=== PATIENT | female | born 1955 | race African-American/Black ===

== ENCOUNTER 2018-11-28 18:26 | Inpatient (IN) | payer BC ==
--- OUTSIDE RECORDS SUMMARY | 2018-11-28 18:28 | XMS REPORT ---
:1955 Author Organization eClinicalWorks Care Team Providers Name Role Phone Kaylynn Dunn Provider Role Unavailable Allergies, Adverse Reactions, Alerts Substance Reaction Event Type N.K.D.A. Info Not Available Non Drug Allergy Problems Problem Type Condition Code Onset Dates Condition Status Assessment Polyp of colon, unspecified part of K63.5 Active colon, unspecified type Assessment Menopause present Z78.0 Active Assessment Hypercholesteremia E78.00 Active Assessment Breast mass, right N63.10 Active Problem Polyp of colon, unspecified part of K63.5 Active colon, unspecified type Problem Menopause present Z78.0 Active Problem Hypercholesteremia E78.00 Active Assessment Encounter for annual routine Z01.419 Active gynecological examination Assessment Encounter for screening mammogram Z12.31 Active for malignant neoplasm of breast Problem Breast mass, right N63.10 Active Medications Medication Code Code Instructions Start End Status Dosage System Date Date Simvastatin [facility] 45074298447 20 MG Orally Active 1 tablet Once a day in the evening Osteo Bi-Flex [facility] 09085202504 250-200 MG Active 1 tablet Regular Orally Once a with a Strength day meal Ecotrin [facility] 10882793703 325 MG Orally Active 1 tablet Once a day Results Name Result Date Reference Range Unit Abnormality Flag URINALYSIS AUTO W/O SCOPE (38629) ----NIT neg 20171021 ----URO 0.2 20171021 ----PROTEIN neg 20171021 ----pH 6.0 20171021 ----BLO trace 20171021 ----GLUCOSE neg 20171021 ----SOHAM neg 20171021 ----BILIRUBIN neg 20171021 ----KETONES neg 20171021 ----SPECIFIC GRAVITY 1.025 20171021 Summary Purpose eClinicalWorks Submission
--- OUTSIDE RECORDS SUMMARY | 2018-11-28 18:28 | XMS REPORT ---
:1955 Author Organization eClinicalWorks Care Team Providers Name Role Phone Yobany Jackson Provider Role Unavailable Allergies, Adverse Reactions, Alerts Substance Reaction Event Type N.K.D.A. Info Not Available Non Drug Allergy Problems Problem Type Condition Code Onset Dates Condition Status Assessment Menopause present Z78.0 Active Problem Polyp of colon, unspecified part of K63.5 Active colon, unspecified type Problem Menopause present Z78.0 Active Problem Encounter for gynecological Z01.419 Active examination without abnormal finding Assessment Encounter for gynecological Z01.419 Active examination without abnormal finding Problem Breast mass, right N63.10 Active Problem Hypercholesteremia E78.00 Active Medications Medication Code Code Instructions Start End Status Dosage System Date Date Simvastatin [facility] 16534670656 20 MG Orally Active 1 tablet Once a day in the evening Ecotrin [facility] 91685067588 325 MG Orally Active 1 tablet Once a day Osteo Bi-Flex [facility] 70987961758 250-200 MG Active 1 tablet Regular Orally Once a with a day meal Results No Known Results Summary Purpose eClinicalWorks Submission
[2018-11-28] MEDS ORDERED: NITROGLYCERIN 0.4 MG/TAB SL ONE (18:53)
[2018-11-28 18:54] LABS: Absolute Lymphocytes (CBC) 3.2 K/uL (0.7-4.9); Hematocrit 38.8 % (36.0-45.0); MPV 8.6 fL (7.6-11.3); RBC Red Blood Cell Count 4.53 M/uL (3.86-4.86)
--- NOTE | 2018-11-28 19:02 | RAD REPORT ---
EXAM DESCRIPTION: RAD - Chest Single View - 11/28/2018 6:57 pm CLINICAL HISTORY: CHEST PAIN Chest pain. COMPARISON: No comparisons FINDINGS: Portable technique limits examination quality. The lungs are grossly clear. The heart is normal in size. No displaced fractures. IMPRESSION: No acute intrathoracic process suspected.
[2018-11-28 19:03] LABS: Protime INR 1.09
[2018-11-28] MEDS ORDERED: NA CHLORIDE 0.9% 1,000 ML ONE ×2 (19:09→19:13)
[2018-11-28] MEDS ORDERED: ENOXAPARIN 100 MG/ML SYR SQ ONE (19:10)
[2018-11-28 19:13] LABS: ALT/SGPT 32 U/L (12-78); AST/SGOT 45 U/L (15-37); Albumin 3.7 g/dL (3.4-5.0); Alkaline Phosphatase 117 U/L (45-117); BUN Blood Urea Nitrogen 14 mg/dL (7-18); Bicarbonate 27 mmol/L (21-32); Bilirubin Direct 0.3 mg/dL (0-0.2); Bilirubin Total 0.5 mg/dL (0.2-1.0); Glucose Level 93 mg/dL (74-106); Magnesium 2.3 mg/dL (1.8-2.4); NT PRO-BNP 104 pg/mL (<125); Potassium 3.8 mmol/L (3.5-5.1); Protein, Total 8.4 g/dL (6.4-8.2); Sodium Level 141 mmol/L (136-145); Troponin (Emerg Dept Use Only) < 0.02 ng/mL (0.0-0.045)
--- NOTE | 2018-11-28 19:43 | EDPHYS ---
Physician Documentation [facility] Name: Dilma Calle Age: 62 yrs Sex: Female : 1955 Arrival Date: 11/28/2018 Time: 18:28 Bed 18 Private MD: ED Physician Diony Leung HPI: 11/28 19:03 This 62 yrs old Black Female presents to ER via Ambulatory with complaints of Chest jr8 Pain. 19:03 The patient or guardian reports chest pain that is located primarily in the substernal jr8 area. Onset: acutely, today, 2 hour(s) ago. The pain radiates to the scapula on both sides. Associated signs and symptoms: The patient has no apparent associated signs or symptoms. The chest pain is described as a heaviness, a pressure. Duration: The patient or guardian reports a single episode, that is still ongoing. Modifying factors: The symptoms are alleviated by nothing. the symptoms are aggravated by nothing. Severity of pain: At its worst the pain was moderate in the emergency department the pain is unchanged. The patient has not experienced similar symptoms in the past. The patient has not recently seen a physician. Historical: - Allergies: 18:38 No Known Allergies; ph - Home Meds: 18:38 aspirin 325 mg Oral tab 1 tab once daily [Active]; Simvastatin Oral [Active]; ph - PMHx: 18:38 High Cholesterol; ph - PSHx: 18:38 None; ph - Immunization history:: Adult Immunizations up to date. - Social history:: Smoking status: Patient/guardian denies using tobacco. - Ebola Screening: : No symptoms or risks identified at this time. ROS: 19:03 Eyes: Negative for injury, pain, redness, and discharge, ENT: Negative for injury, jr8 pain, and discharge, Neck: Negative for injury, pain, and swelling, Respiratory: Negative for shortness of breath, cough, wheezing, and pleuritic chest pain, Abdomen/GI: Negative for abdominal pain, nausea, vomiting, diarrhea, and constipation, Back: Negative for injury and pain, MS/Extremity: Negative for injury and deformity, Skin: Negative for injury, rash, and discoloration, Neuro: Negative for headache, weakness, numbness, tingling, and seizure. 19:03 Cardiovascular: Positive for chest pain, Negative for edema, orthopnea, palpitations, paroxysmal nocturnal dyspnea. Exam: 19:03 Eyes: Pupils equal round and reactive to light, extra-ocular motions intact. Lids and jr8 lashes normal. Conjunctiva and sclera are non-icteric and not injected. Cornea within normal limits. Periorbital areas with no swelling, redness, or edema. ENT: Nares patent. No nasal discharge, no septal abnormalities noted. Tympanic membranes are normal and external auditory canals are clear. Oropharynx with no redness, swelling, or masses, exudates, or evidence of obstruction, uvula midline. Mucous membranes moist. Neck: Trachea midline, no thyromegaly or masses palpated, and no cervical lymphadenopathy. Supple, full range of motion without nuchal rigidity, or vertebral point tenderness. No Meningismus. Cardiovascular: Regular rate and rhythm with a normal S1 and S2. No gallops, murmurs, or rubs. Normal PMI, no JVD. No pulse deficits. Respiratory: Lungs have equal breath sounds bilaterally, clear to auscultation and percussion. No rales, rhonchi or wheezes noted. No increased work of breathing, no retractions or nasal flaring. Abdomen/GI: Soft, non-tender, with normal bowel sounds. No distension or tympany. No guarding or rebound. No evidence of tenderness throughout. Back: No spinal tenderness. No costovertebral tenderness. Full range of motion. Skin: Warm, dry with normal turgor. Normal color with no rashes, no lesions, and no evidence of cellulitis. MS/ Extremity: Pulses equal, no cyanosis. Neurovascular intact. Full, normal range of motion. Neuro: Awake and alert, GCS 15, oriented to person, place, time, and situation. Cranial nerves II-XII grossly intact. Motor strength 5/5 in all extremities. Sensory grossly intact. Cerebellar exam normal. Normal gait. Vital Signs: 18:39 BP 135 / 75; Pulse 78; Resp 18; Pulse Ox 98% on R/A; Weight 90.72 kg; Height 5 ft. 5 ph in. (165.10 cm); Pain 5/10; 19:08 Temp 97.0; ph 19:13 BP 67 / 37; Pulse 52; Resp 22; Pulse Ox 97% on 2 lpm NC; ph 19:15 BP 120 / 72; Pulse 70; Resp 19 S; Pulse Ox 97% on 2 lpm NC; Pain 0/10; cc3 19:30 BP 118 / 65; Pulse 67; Resp 17 S; Pulse Ox 97% on 2 lpm NC; Pain 0/10; cc3 20:04 BP 121 / 65; Pulse 83; Resp 20 S; Pulse Ox 97% on 2 lpm NC; Pain 0/10; cc3 21:45 BP 118 / 97; Pulse 82; Resp 20 S; Pulse Ox 98% on 2 lpm NC; Pain 0/10; cc3 22:05 BP 101 / 85; Pulse 79; Resp 20 S; Pulse Ox 98% on 2 lpm NC; Pain 0/10; cc3 18:39 Body Mass Index 33.28 (90.72 kg, 165.10 cm) ph MDM: 18:32 Patient medically screened. jr8 19:40 The patient was not given aspirin in the Emergency Department. Patient reports taking jr8 aspirin within the past 24 hours. Data reviewed: vital signs, nurses notes, lab test result(s), EKG, radiologic studies, CT scan, plain films. Data interpreted: Pulse oximetry: on room air is 97 %. Interpretation: normal. Counseling: I had a detailed discussion with the patient and/or guardian regarding: the historical points, exam findings, and any diagnostic results supporting the discharge/admit diagnosis, lab results, radiology results, the need for further work-up and treatment in the hospital. ED course: Consulted Dr. Rodriguez and will see patient. . 19:55 ED course: Dr. Murguia accepted patient . 11/28 18:32 Order name: Basic Metabolic Panel; Complete Time: 19:18 11/28 18:32 Order name: CBC with Diff; Complete Time: 19:02 11/28 18:32 Order name: LFT's; Complete Time: 19:18 11/28 18:32 Order name: Magnesium; Complete Time: 19:18 11/28 18:32 Order name: NT PRO-BNP; Complete Time: 19:18 11/28 18:32 Order name: PT-INR; Complete Time: 19:04 11/28 18:32 Order name: Troponin (emerg Dept Use Only); Complete Time: 19:18 11/28 18:32 Order name: XRAY Chest (1 view); Complete Time: 19:36 11/28 20:14 Order name: CT Chest For PE Angio; Complete Time: 21:06 11/28 18:32 Order name: Cardiac monitoring; Complete Time: 18:39 11/28 18:32 Order name: EKG - Nurse/Tech; Complete Time: 18:33 11/28 18:32 Order name: IV Saline Lock; Complete Time: 18:49 11/28 18:32 Order name: Labs collected and sent; Complete Time: 18:49 11/28 18:32 Order name: O2 Per Protocol; Complete Time: 19:02 11/28 18:32 Order name: O2 Sat Monitoring; Complete Time: 19:02 11/28 19:06 Order name: EKG - Nurse/Tech; Complete Time: 19:14 11/28 20:35 Order name: CONS Physician Consult EDMS Administered Medications: 18:57 Drug: Nitroglycerin 0.4 mg Route: Sublingual; ph 19:11 Follow up: Response: Blood pressure is lowered; Cardiac rhythm changed cc3 19:07 Drug: NS 0.9% 500 ml Route: IV; Rate: bolus; Site: right antecubital; cc3 20:00 Follow up: Response: No adverse reaction; IV Status: Completed infusion; IV Intake: cc3 500ml 19:07 Drug: NS 0.9% 500 ml Route: IV; Rate: bolus; Site: right forearm; cc3 20:00 Follow up: Response: No adverse reaction; IV Status: Completed infusion; IV Intake: cc3 500ml 19:13 Drug: NS 0.9% 1000 ml Route: IV; Rate: 1 bolus; Site: left antecubital; cc3 20:30 Follow up: Response: No adverse reaction; IV Status: Completed infusion; IV Intake: cc3 1000ml 19:15 Drug: Lovenox 1 mg/kg Route: Sub-Q; Site: right lower abdomen; cc3 19:38 Follow up: Response: No adverse reaction cc3 Disposition: 11/29 07:46 Co-signature as Attending Physician, Diony CONLEY I agree with the assessment and ricardo plan of care. Disposition: 11/28/18 19:41 Hospitalization ordered by Dwight Murguia for Inpatient Admission. Preliminary diagnosis is Unstable angina. - Bed requested for Telemetry/MedSurg (Inpatient). - Status is Inpatient Admission. cc3 - Condition is Stable. - Problem is new. - Symptoms have improved. UTI on Admission? No Signatures: Dispatcher [employer] EDMS Layne Houser RN RN Diony Leung MD MD cha Roszak, Josh, PHIL PA jr8 Angelique Avila RN RN Nori Skelton cc3 Corrections: (The following items were deleted from the chart) 11/28 20:40 19:41 Hospitalization Ordered by Dwight Murguia MD for Inpatient Admission. Preliminary diagnosis is Unstable angina. Bed requested for Telemetry/MedSurg (Inpatient). Status is Inpatient Admission. Condition is Stable. Problem is new. Symptoms have improved. UTI on Admission? No. jr8 22:18 20:40 11/28/2018 19:41 Hospitalization Ordered by Dwight Murguia MD for Inpatient cc3 Admission. Preliminary diagnosis is Unstable angina. Bed requested for Telemetry/MedSurg (Inpatient). Status is Inpatient Admission. Condition is Stable. Problem is new. Symptoms have improved. UTI on Admission? No. mw
--- NOTE | 2018-11-28 19:43 | ER ---
Nurse's Notes [facility] Name: Dilma Calle Age: 62 yrs Sex: Female : 1955 Arrival Date: 11/28/2018 Time: 18:28 Bed 18 [facility] MD: Diagnosis: Unstable angina Presentation: 11/28 18:37 Presenting complaint: Patient states: Onset of chest pain at 1700 today about 15 ph minutes after eating a plum and leaving to go to a volleyball game. Transition of care: patient was not received from another setting of care. Onset of symptoms was November 28, 2018. Risk Assessment: Do you want to hurt yourself or someone else? Patient reports no desire to harm self or others. Initial Sepsis Screen: Does the patient meet any 2 criteria? No. Patient's initial sepsis screen is negative. Does the patient have a suspected source of infection? No. Patient's initial sepsis screen is negative. Care prior to arrival: None. 18:37 Method Of Arrival: Ambulatory ph 18:37 Acuity: GILLIAN 2 ph Historical: - Allergies: 18:38 No Known Allergies; ph - Home Meds: 18:38 aspirin 325 mg Oral tab 1 tab once daily [Active]; Simvastatin Oral [Active]; ph - PMHx: 18:38 High Cholesterol; ph - PSHx: 18:38 None; ph - Immunization history:: Adult Immunizations up to date. - Social history:: Smoking status: Patient/guardian denies using tobacco. - Ebola Screening: : No symptoms or risks identified at this time. Screenin:12 Abuse screen: Denies threats or abuse. Denies injuries from another. Nutritional cc3 screening: No deficits noted. Tuberculosis screening: No symptoms or risk factors identified. Fall Risk Ambulatory Aid- None/Bed Rest/Nurse Assist (0 pts). Gait- Normal/Bed Rest/Wheelchair (0 pts) Mental Status- Oriented to own ability (0 pts). Assessment: 18:55 General: Appears in no apparent distress. uncomfortable, well groomed, Behavior is ph calm, cooperative, appropriate for age, Denies fever, feeling ill. Pain: Complains of pain in xyphoid area and mid-sternal area Pain radiates to mid-back Pain began suddenly. Neuro: Level of Consciousness is awake, alert, obeys commands, Oriented to person, place, time, situation. Cardiovascular: Capillary refill < 3 seconds in bilateral fingers Patient's skin is warm and dry. Rhythm is regular Chest pain quality is sharp, stabbing, is located in substernal area radiates back began suddenly. Respiratory: Airway is patent Respiratory effort is even, unlabored, Respiratory pattern is regular, symmetrical. GI: Patient currently denies abdominal pain, nausea, vomiting. Derm: Skin is intact, is healthy with good turgor, Skin is pink, warm \\T\\ dry. Musculoskeletal: Circulation, motion, and sensation intact. Range of motion: intact in all extremities. 19:11 Reassessment: After receiving PO Nitro x 1 pt began feeling "hot all over" BP noted to ph have decreased to 67/37 and cardiac rhythm noted to be sinus indy at 54 bpm, ERP notified and at bedside, IV fluids administered via pressure bag. 19:12 Reassessment: Patient and/or family updated on plan of care and expected duration. Pain cc3 level reassessed. Patient is alert, oriented x 3, equal unlabored respirations, skin warm/dry/pink. Received this female patient from morning shift RN PJ as a case of chest pain, now patient doesn't complain of chest pain but she said she "feels hot all over" with low blood pressure reading of 67/37 mmHg and noted to have sinus bradycardia cardiac rhythm. PHIL Brown at bedside, IV fluid boluses started as ordered and repeat EKG done. Patient denies pain at this time. General: Appears distressed, uncomfortable, Behavior is cooperative, anxious, Reports feeling hot all over. Pain: Denies pain. Neuro: Level of Consciousness is awake, alert, obeys commands, Oriented to person, place, time, situation, Appropriate for age. Cardiovascular: Heart tones S1 S2 present Capillary refill < 3 seconds Patient's skin is warm and dry. Rhythm is sinus bradycardia. Respiratory: Airway is patent Respiratory effort is even, unlabored, Respiratory pattern is regular, symmetrical. GI: Abdomen is round non-distended, Patient currently denies abdominal pain. : No signs and/or symptoms were reported regarding the genitourinary system. EENT: No signs and/or symptoms were reported regarding the EENT system. Derm: Skin is intact, is healthy with good turgor, Skin is normal, black. Musculoskeletal: Circulation, motion, and sensation intact. Range of motion: intact in all extremities. 19:35 Reassessment: Patient appears in no apparent distress at this time. Patient and/or cc3 family updated on plan of care and expected duration. Pain level reassessed. Patient is alert, oriented x 3, equal unlabored respirations, skin warm/dry/pink. Patient said she felt better now, PHIL Brown aware and said patient will be for admission. Patient denies pain at this time. Patient states feeling better. Patient states symptoms have improved. 20:12 Reassessment: Patient appears in no apparent distress at this time. Patient and/or cc3 family updated on plan of care and expected duration. Pain level reassessed. Patient is alert, oriented x 3, equal unlabored respirations, skin warm/dry/pink. Patient denies pain at this time. Patient states feeling better. Patient states symptoms have improved. 20:25 Reassessment: Patient taken by microbiology quality control technician to their department by bed. cc3 20:45 Reassessment: Patient appears in no apparent distress at this time. Patient and/or cc3 family updated on plan of care and expected duration. Pain level reassessed. Patient is alert, oriented x 3, equal unlabored respirations, skin warm/dry/pink. Patient came back from CT scan department, awaiting result. 21:35 Reassessment: Patient appears in no apparent distress at this time. Patient and/or cc3 family updated on plan of care and expected duration. Pain level reassessed. Patient is alert, oriented x 3, equal unlabored respirations, skin warm/dry/pink. Room available in 425, called for report but was told that the nurse who will receive will just call me back. Patient denies pain at this time. Patient states feeling better. Patient states symptoms have improved. 22:05 Reassessment: Patient appears in no apparent distress at this time. Patient and/or cc3 family updated on plan of care and expected duration. Pain level reassessed. Patient is alert, oriented x 3, equal unlabored respirations, skin warm/dry/pink. MAGNOLIA Jones called and report handed over to her for continuity of care and management. Patient denies pain at this time. Patient states feeling better. Patient states symptoms have improved. 22:15 Reassessment: Patient appears in no apparent distress at this time. Patient and/or cc3 family updated on plan of care and expected duration. Pain level reassessed. Patient is alert, oriented x 3, equal unlabored respirations, skin warm/dry/pink. Patient left ER for admission vitally stable by bed escorted by training technician Alisson and the patient's family. No valuables left in the patient's room. Patient denies pain at this time. Patient states feeling better. Patient states symptoms have improved. Vital Signs: 18:39 BP 135 / 75; Pulse 78; Resp 18; Pulse Ox 98% on R/A; Weight 90.72 kg; Height 5 ft. 5 ph in. (165.10 cm); Pain 5/10; 19:08 Temp 97.0; ph 19:13 BP 67 / 37; Pulse 52; Resp 22; Pulse Ox 97% on 2 lpm NC; ph 19:15 BP 120 / 72; Pulse 70; Resp 19 S; Pulse Ox 97% on 2 lpm NC; Pain 0/10; cc3 19:30 BP 118 / 65; Pulse 67; Resp 17 S; Pulse Ox 97% on 2 lpm NC; Pain 0/10; cc3 20:04 BP 121 / 65; Pulse 83; Resp 20 S; Pulse Ox 97% on 2 lpm NC; Pain 0/10; cc3 21:45 BP 118 / 97; Pulse 82; Resp 20 S; Pulse Ox 98% on 2 lpm NC; Pain 0/10; cc3 22:05 BP 101 / 85; Pulse 79; Resp 20 S; Pulse Ox 98% on 2 lpm NC; Pain 0/10; cc3 18:39 Body Mass Index 33.28 (90.72 kg, 165.10 cm) ph ED Course: 18:28 Patient arrived in ED. iw 18:32 Epifanio Brown PA is PHCP. jr8 18:32 Diony Leung MD is Attending Physician. jr8 18:36 Angelique Avila, MAGNOLIA is Primary Nurse. ph 18:37 Triage completed. ph 18:39 Arm band placed on right wrist. EKG completed in triage. Results shown to MD. ph 18:47 Initial lab(s) drawn, sent to lab. Inserted saline lock: 20 gauge in right forearm, mh5 using aseptic technique. Blood collected. 18:49 Patient has correct armband on for positive identification. Placed in gown. Bed in low mh5 position. Call light in reach. Side rails up X 1. Adult w/ patient. Pillow given. laboratory monitor on. Pulse ox on. NIBP on. 18:49 Basic Metabolic Panel Sent. mh5 18:49 CBC with Diff Sent. 5 18:49 LFT's Sent. 5 18:49 Magnesium Sent. 5 18:49 NT PRO-BNP Sent. 5 18:49 PT-INR Sent. 5 18:49 Troponin (emerg Dept Use Only) Sent. 5 18:58 XRAY Chest (1 view) In Process Unspecified. EDMS 19:12 Inserted saline lock: 18 gauge in left antecubital area, using aseptic technique. cc3 inserted by PHIL Brown. 19:12 Oxygen administration via nasal cannula \\T\\ 2L/min. cc3 19:41 Dwight Murguia MD is Hospitalizing Provider. jr8 20:[address] via stretcher. nj 20:35 CT Chest For PE Angio In Process Unspecified. EDMS 20:35 CT completed. Patient tolerated procedure well. Patient moved back from CT. nj 21:14 Assisted with bedpan. jb5 21:14 Diet: Patient given water. Tolerated well. jb5 22:05 No provider procedures requiring assistance completed. Patient admitted, IV remains in cc3 place. Administered Medications: 18:57 Drug: Nitroglycerin 0.4 mg Route: Sublingual; ph 19:11 Follow up: Response: Blood pressure is lowered; Cardiac rhythm changed cc3 19:07 Drug: NS 0.9% 500 ml Route: IV; Rate: bolus; Site: right antecubital; cc3 20:00 Follow up: Response: No adverse reaction; IV Status: Completed infusion; IV Intake: cc3 500ml 19:07 Drug: NS 0.9% 500 ml Route: IV; Rate: bolus; Site: right forearm; cc3 20:00 Follow up: Response: No adverse reaction; IV Status: Completed infusion; IV Intake: cc3 500ml 19:13 Drug: NS 0.9% 1000 ml Route: IV; Rate: 1 bolus; Site: left antecubital; cc3 20:30 Follow up: Response: No adverse reaction; IV Status: Completed infusion; IV Intake: cc3 1000ml 19:15 Drug: Lovenox 1 mg/kg Route: Sub-Q; Site: right lower abdomen; cc3 19:38 Follow up: Response: No adverse reaction cc3 Intake: 20:00 IV: 500ml; Total: 500ml. cc3 20:00 IV: 500ml; Total: 1000ml. cc3 20:30 IV: 1000ml; Total: 2000ml. cc3 Outcome: 19:41 Decision to Hospitalize by Provider. jr8 22:05 Admitted to Tele accompanied by tech, family with patient, via stretcher, room 425, cc3 with oxygen, with chart, Report called to MAGNOLIA Jones 22:05 Condition: stable 22:05 Instructed on the need for admit, Demonstrated understanding of instructions. 22:18 Patient left the ED. cc3 Signatures: Dispatcher [employer] EDRadha Hopkins RN RN iw Roszak, Josh, PA PA jr8 Angelique Avila RN RN [facility], Alaina Rob [facility] Kym Melendrez Charlene cc3 Corrections: (The following items were deleted from the chart) 22:34 20:04 BP 121 / 65; Pulse 83bpm; Resp 20bpm; Spontaneous; Pulse Ox 97% 2 lpm Nasal cc3 Cannula; cc3 22:34 21:45 BP 118 / 97; Pulse 82bpm; Resp 20bpm; Spontaneous; Pulse Ox 98% 2 lpm Nasal cc3 Cannula; cc3
--- NOTE | 2018-11-28 20:51 | RAD REPORT ---
EXAM DESCRIPTION: CT - Chest For Pe Angio - 11/28/2018 8:34 pm CLINICAL HISTORY: Chest pain. Chest pain;Dyspnea COMPARISON: Chest Single View dated 11/28/2018; 3D SCR CHAYO BILAT W/CAD dated 12/10/2017 TECHNIQUE: CT angiogram of the pulmonary arteries was performed with MIP. All CT scans are performed using dose optimization technique as appropriate and may include automated exposure control or mA/KV adjustment according to patient size. FINDINGS: A large anterior mediastinal mass is seen measuring 4.0 x 3.5 cm and displacing the trache a to the right. No evidence of pulmonary thromboembolism. No acute aortic finding demonstrated. The lungs are clear. No significant pericardial or pleural fluid. No concerning bony finding. IMPRESSION: No evidence of pulmonary thromboembolism. 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 Recommend nuclear medicine thyroid scan for further workup.
[2018-11-28] MEDS ORDERED: NA CHLORIDE 0.9% 1,000 ML IV SCH (21:00)
[2018-11-28] MEDS ORDERED: ONDANSETRON 4 MG/2 ML VIAL IV PRN (22:41)
[2018-11-28] MEDS ORDERED: MORPHINE 4 MG/ML SYR IV PRN (22:41)
[2018-11-29 03:36] VITALS: BMI 34.0
[2018-11-29 04:35] LABS: Absolute Lymphocytes (CBC) 4.3 K/uL (0.7-4.9); Basophils % 0.6 % (0-1.3); Hematocrit 37.5 % (36.0-45.0); Lymphocytes % 35.1 % (15.3-44.8); MPV 8.7 fL (7.6-11.3); RBC Red Blood Cell Count 4.33 M/uL (3.86-4.86)
[2018-11-29 04:52] LABS: Potassium 3.9 mmol/L (3.5-5.1)
[2018-11-29 07:00] LABS: Urine Appearance CLEAR; Urine Bilirubin NEGATIVE (NEG); Urine Blood NEGATIVE (NEG); Urine Color YELLOW; Urine Glucose NEGATIVE (NEG); Urine Protein NEGATIVE (NEG); Urine Specific Gravity >=1.030 (1.005-1.030); Urine pH 6.5 (5.0-7.0)
[2018-11-29 07:12] LABS: Urine Microscopic Reflex NO UMIC
[2018-11-29] MEDS: ASPIRIN EC 81 MG TAB PO SCH (08:23)
[2018-11-29] MEDS ORDERED: ENOXAPARIN 100 MG/ML SYR SQ SCH (09:00)
--- NOTE | 2018-11-29 11:35 | EKG ---
Test Date: 2018-11-28 Test Time: 18:28:06 Self Propelled Dredge Operator: MEASUREMENT RESULTS: Intervals: Rate: 82 RI: 206 QRSD: 74 QT: 378 QTc: 441 [place]: P: 47 RI: 206 QRS: 45 T: 34 INTERPRETIVE STATEMENTS: Normal sinus rhythm Normal ECG Compared to ECG 12/24/2008 09:38:17 No significant changes Electronically Signed On 11-29-18 11:33:40 CDT by Roderick Rodriguez
--- NOTE | 2018-11-29 11:35 | EKG ---
Test Date: 2018-11-28 Test Time: 19:16:09 Extension Worker: FRANCO MEASUREMENT RESULTS: Intervals: Rate: 61 MD: 216 QRSD: 84 QT: 414 QTc: 416 [place]: P: 51 MD: 216 QRS: 61 T: 49 INTERPRETIVE STATEMENTS: Sinus rhythm with 1st degree AV block Otherwise normal ECG Compared to ECG 11/28/2018 18:28:06 First degree AV block now present Electronically Signed On 11-29-18 11:33:40 CDT by Roderick Rodriguez
--- NOTE | 2018-11-29 11:47 | ECHO ---
HEIGHT: 5 ft 5 in WEIGHT: 204 lb 3.2 oz DATE OF STUDY: 11/29/[address]: Roderick Rodriguez MD 2-DIMENSIONAL: YES M.MODE: YES DOPPLER: YES COLOR FLOW: YES TDS: NO PORTABLE: NO DEFINITY: NO BUBBLE STUDY: NO DIAGNOSIS: CHEST PAIN CARDIAC HISTORY: CATHERIZATION: NO SURGERY: NO PROSTHETIC VALVE: NO PACEMAKER: NO MEASUREMENTS (cm) DIASTOLIC (NORMALS) SYSTOLIC (NORMALS) IVSd 1.0 (0.6-1.2) LA Diam 3.3 (1.9-4.0) LVEF 67% LVIDd 3.3 (3.5-5.7) LVIDs 2.1 (2.0-3.5) %FS 36% LVPWd 1.2 (0.6-1.2) Ao Diam 2.7 (2.0-3.7) 2 DIMENSIONAL ASSESSMENT: RIGHT ATRIUM: NORMAL LEFT ATRIUM: NORMAL RIGHT VENTRICLE: NORMAL LEFT VENTRICLE: NORMAL TRICUSPID VALVE: NORMAL MITRAL VALVE: NORMAL PULMONIC VALVE: NORMAL AORTIC VALVE: NORMAL PERICARDIAL EFFUSION: NONE AORTIC ROOT: NORMAL LEFT VENTRICULAR WALL MOTION: NORMAL DOPPLER/COLOR FLOW: NORMAL COMMENTS: NORMAL 2D ECHOCARDIOGRAM WITH DOPPLER. NO WALL MOTION ABNORMALITY. NO EFFUSION. TECHNOLOGIST: Kade CARDONA
[2018-11-29] MEDS ORDERED: MORPHINE 2 MG/ML SYR IV PRN (16:00)
[2018-11-29 16:15] LABS: T3 Free 2.28 pg/mL (2.18-3.98); Thyroid Stimulating Hormone 2.44 uIU/mL (0.360-3.740)
[2018-11-29] MEDS ORDERED: ATORVASTATIN 10 MG TAB PO SCH (21:00)
--- NOTE | 2018-11-30 01:48 | HP ---
Date of Admission: 11/28/2018 History Of Present Illness: Patient is a -[id number]-oyz female who was sitting down eating lunc h when she started feeling chest discomfort in the form of pressure and ache that radiated to her harley k. She was concerned and came to emergency room and she was admitted for chest pain. The patient d no nausea, no vomiting, no palpitation, no increased shortness of breath and voiced no other compla ints. Review of Systems: Cardiovascular: As mentioned, no palpitation. No dizziness. Respiratory: No complaints. Gastrointestinal: No complaints. Genitourinary: No complaints. Skeletomuscular: No complaints. Neurological: No complaints. Past Medical History: Hyperlipidemia. No cardiac history in the past. Social History: Denies smoking, alcohol, or drug abuse history. Family History: Noncontributory. Medications: Simvastatin and aspirin. Physical Examination: Vital Signs: Blood pressure 115/55, pulse 58, temperature 97.8. Heart: Regular rate and rhythm. Chest: Clear to auscultation. Abdomen: Soft, nontender. No hepatosplenomegaly. Bowel sounds normoactive. Extremities: No edema. No cyanosis. Peripheral pulses are felt. Neurologic: Alert, oriented, nonfocal. Grossly intact. Neck: The patient had mild small goitre but no bruit. Laboratory And Radiologic Data: Cardiac enzymes negative. Electrocardiogram showed sinus rhythm, th ird-degree AV block. Chest x-ray, no acute pathology. No intrathoracic finding. Chest CT showed a large anterior mediastinal mass shifting the trachea to the right. The differential includes thyroid disorder, less likely lymphoma. CBC noted. White cell count 12.2. Chemistry noted. GFR at 85. U rinalysis negative. Assessment/plan: Chest pain in a patient with hyperlipidemia. Workup is negative. I have asked Dr. Rodriguez, supervisor dairy sanitation to see the patient. He ordered an echo with a normal ejection fraction and wa ll motion. Dr. Rodriguez . We will go ahead and do a radioactive scan of the thyroid tissue and also will check TSH, T3 and T4. Right now her symptoms have resolved. She has no chest pain. I think we will do the thyroid scan and the blood work and she stays symptom-free. We can discharge her and work with her at this time unless discharged as an outpatient. Look orders for details. PAOLO/FELIX Voice ID: [id number]
--- NOTE | 2018-11-30 02:12 | CON ---
Date of Consultation: 11/29/2018 Patient was admitted to Dr. Murguia's service on 11/28/2018, I saw the patient on 11/29/2018. Reason For Consultation: Chest pain. History Of Present Illness: Ms. Calle is a 62-year-old white woman, has a history of dyslipidemia o nly for which she takes Zocor. She also takes aspirin. Came in with chest pain radiating to the harley k after eating a plum. No nausea, vomiting, diaphoresis, or shortness of breath. She denies any PND , orthopnea, pedal edema, palpitation, or syncope. Symptoms were going on for couple of hours. Past Medical History: As stated above. Medications: As stated above. Allergies: NONE. Review of Systems: Negative. Social History: Negative. Family History: Negative. Physical Examination: General: She weighed 204 pounds. HEENT: Negative. Neck: Supple with no bruit. Chest: Clear to auscultation and percussion. Cardiac: Revealed a regular rhythm and rate. No murmurs, gallops, or rubs. Abdomen: Benign. Extremities: Revealed no clubbing, cyanosis, or edema. Diagnostic Data: Her white count was 12,000. Chest x-ray was negative. EKG was negative. She had a CT angiogram showing a mass in the mediastinal space, possibly secondary to goiter, thymoma, or lym phoma. Thyroid scan was recommended. Impression And Plan: Atypical chest pain, most likely gastrointestinal in origin. The patient, marvin quigley, have dyslipidemia, obesity, and maybe benefit from an echocardiogram and if that is negative, I will arrange for her to have an outpatient stress test. I would definitely add proton pump inhibitor to her regimen. Her dyslipidemia is well controlled. She has an abnormal CT angiogram of the chest . Thyroid scan has been recommended. I will leave this decision up to Dr. Murguia. BRENTON/FELIX Voice ID: [id number] Report ID: [id number]
[2018-11-30 04:43] LABS: Absolute Lymphocytes (CBC) 4.8 K/uL (0.7-4.9); Basophils % 0.7 % (0-1.3); Lymphocytes % 51.4 % (15.3-44.8); MPV 8.8 fL (7.6-11.3); RBC Red Blood Cell Count 4.46 M/uL (3.86-4.86)
[2018-11-30 04:50] LABS: Potassium 3.7 mmol/L (3.5-5.1)
[2018-11-30] MEDS: ASPIRIN EC 81 MG TAB PO SCH (08:02)
--- NOTE | 2018-11-30 08:24 | RAD REPORT ---
EXAM DESCRIPTION: NM - Thyroid Imaging - 11/30/2018 7:43 am CLINICAL HISTORY: Abnormal radiologic exam. Thyroid mass COMPARISON: CT chest November 28, 2018 TECHNIQUE: 10.6 millicuries technetium pertechnetate administered intravenously. Anterior and obliqu e views of the neck and upper chest obtained FINDINGS: Right lobe of the thyroid gland demonstrates homogeneous uptake. Most of the left lobe of thyroid gland demonstrates homogeneous uptake. Abutting the inferior aspect of the left lobe of the thyroid gland is an area of mildly increased rad iotracer uptake which corresponds to the substernal/mediastinal mass seen on CT scan. The radiotracer uptake is significantly diminished when compared to the radiotracer uptake of the remainder of the t hyroid gland and is considered a cold nodule. The mass measures approximately 4 centimeters. 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 It is recommended that t he patient have an ultrasound for further evaluation
[2018-11-30] MEDS ORDERED: ENOXAPARIN 40 MG/0.4 ML SQ SCH (09:00)
[2018-11-30 12:01] VITALS: O2SAT 96
[2018-11-30 12:38] VITALS: BP 116/65; TEMP 97.6
--- NOTE | 2018-11-30 12:46 | RAD REPORT ---
EXAM DESCRIPTION: US - Thyroid Para Parotid Gland - 11/30/2018 12:15 pm CLINICAL HISTORY: goiter COMPARISON: Thyroid scan November 30, CT chest November 28 FINDINGS: The right lobe measures 4.5 x 0.9 x 1.6 cm. An 8 x 6 x 3 mm predominantly cystic nodule is present in the upper right lobe. This has a small soft tissue nodular component. Nodule is otherwise anechoic. No other significant right-side thyroid or adjacent soft tissue finding. A 14 millimeter solid nodule is present in the left lobe isthmus junction. Overall measurement of the left lobe is difficult to ascertain due to an obscured or distorted inferior margin. There is a larg e 4-5 centimeter solid mass at the inferior margin of the left lobe that continues inferiorly into th e upper chest, beyond the field of view for thyroid sonography. This large mass fluid correspond to t he large mass in the upper mediastinum detailed on the November 28 CT study. At sonography there rivas ears to be a defined tissue plane between the mass in the left lobe which may indicate that the mass is discrete from thyroid tissue rather than a large thyroid goiter mass. The superior margin of the mass is probably amenable to fine-needle aspiration. This may help identif y whether the mass is thyroid origin. A fine-needle aspiration would not be sufficient for diagnosis of a lymphoma or thymoma. Core biopsy could not be performed. IMPRESSION: A large 4- 5 centimeter mass at the inferior margin of the left lobe has fairly well-dem arcated margins relative to the left lobe of the thyroid gland. Enlarged thyroid nodule remains a differential consideration. A lymphoma or thymoma extending from th e chest into the upper neck also possibilities. The superior margin of the mass is probably amenable to ultrasound-guided FNA. This could identify an d characterize thyroid tissue. Patient also has a left lobe 14 millimeter solid nodule that can be monitored.
--- NOTE | 2018-12-01 03:46 | DS ---
Date of Discharge: 11/30/2018 History: The patient is a 62-year-old female who was admitted because of substernal chest pain. Past Medical History: As per admit note. Social History: As per admit note. Family History: As per admit note. Medications: As per admit note. Allergies: PER ADMIT NOTE. Physical Examination: As per admit note. Diagnostic Data: As per admit note. Hospital Course: Patient was admitted to the hospital to have cardiac workup with enzymes, EKG, and echo and also cardiology consult by Dr. Rodriguez showed that the patient's origin of chest pain is non cardiac. We suspected gastroesophageal reflux disease. At the same time, a chest CT showed mediasti nal mass pushing on the trachea to the site and thyroid scan was done which showed a large goiter. I have ordered ultrasound, however, the patient is asymptomatic today and she is feeling well. Her TS H, T3, and T4 were within normal limits. We will follow up on the thyroid ultrasound and the mediast inal mass as an outpatient. We will go ahead and discharge the patient. She is to see me in 2-3 day s and we will refer her to the speciality needed for her thyroid and her mediastinal mass. I have pr escribed for the patient Protonix 20 mg b.i.d., to continue the rest of her home medicines. Look discharge orders for details. MFS/MODL Voice ID: [id number] Report ID: [id number]
== END 2018-11-30 14:32 | disposition home or self-care (01) | DRG 313 ==
LOC: ER 18:26 → ERHOLD 21:58 → 4TH 22:10
PROVIDERS: ADMIT Internal Medicine; ATTEND Internal Medicine
DX: R07.89 Other chest pain (principal); J98.59 Other diseases of mediastinum, not elsewhere classified; E04.9 Nontoxic goiter, unspecified; E78.5 Hyperlipidemia, unspecified; K21.9 Gastro-esophageal reflux disease without esophagitis; E66.9 Obesity, unspecified; Z68.34 Body mass index [BMI] 34.0-34.9, adult
CPT/HCPCS: 36415; 71045; 71275; 76536; 78013; 80048; 80076; 81003; 83735; 83880; 84439; 84443; 84481; 84484; 85025; 85610; 93005; 93306; 96360; 96372; 99285; A9512; J1650; J7030; Q9967